=== PATIENT | male | born 1970 | race Caucasian/White ===

== ENCOUNTER 2021-02-07 01:52 | Inpatient (IN) ==
[2021-02-07] MEDS ORDERED: 0.9 % Sodium Chloride 1,000 ML IVC ONE ×2 (02:35→04:50)
[2021-02-07] MEDS ORDERED: Ondansetron ODT 4 MG TAB.RAPDIS SL PRN ×2 (02:39→05:48)
[2021-02-07] MEDS ORDERED: Isovue-370 500 ML BOTTLE IVP ONE (02:47)
[2021-02-07 02:49] LABS: Bilirubin,Urine Moderate (Negative); Blood,Urine Small (Negative); Clarity,Urine Clear (Clear); Color,Urine Dark-Yellow (Yellow); Glucose,Urine (UA) Normal (Normal); Hyaline Casts,Urine Few per lpf (None Seen); Ketones,Urine 20 mg/dL (Negative); Leukocyte Esterase,Urine Negative (Negative); Mucus,Urine Few per lpf (None-Few); Nitrite,Urine Negative (Negative); Protein,Urine Trace mg/dL (Neg-Trace); RBC,Urine 0-3 per hpf (0-3); Specific Gravity,Urine 1.028 (1.010-1.025); Transitional Epi Cells,Urine Few per hpf (None-Few)
[2021-02-07 03:08] LABS: Basophils % 0.1 %; Hematocrit 41.5 % (37.5-50.1); Hemoglobin 14.8 g/dL (12.9-16.9); Immature Granulocytes % 0.7 % (0-4); Lymphocytes # 1.1 K/mcL (0.6-4.6); Lymphocytes % 6.8 %; Mean Corpuscular HGB Conc 35.7 g/dL (31.6-35.5); Mean Corpuscular Hemoglobin 31.2 pg (28.0-33.3); Mean Corpuscular Volume 87.6 fL (83.0-100.0); Mean Platelet Volume 10.7 fL (9.4-12.4); Monocytes # 0.8 K/mcL (0.0-1.3); Monocytes % 4.5 %; Neutrophils # 14.7 K/mcL (1.6-8.9); Platelet Count 299 K/mcL (140-400); Red Blood Count 4.74 M/mcL (4.19-5.50); Red Cell Distribution Width 12.6 % (11.5-14.5); Segmented Neutrophils % 87.9 %; White Blood Count 16.7 K/mcL (4.3-11.1)
[2021-02-07 03:14] LABS: BUN/Creatinine Ratio 18 (6-26); Blood Urea Nitrogen 14 mg/dL (6-20); Calcium 9.6 mg/dL (8.6-10.3); Carbon Dioxide 24 mEq/L (23-29); Chloride 101 mEq/L (98-107); Glucose 136 mg/dL (70-105); Osmolality,Calculated 287 (280-300); Potassium 3.3 mEq/L (3.5-5.1); Sodium 137 mEq/L (136-145); eGFR For African Americans > 60 (> 60); eGFR For Non-African Americans > 60 (> 60)
[2021-02-07 03:36] LABS: Alanine Aminotransferase 123 Units/L (7-52); Albumin 4.2 g/dL (3.5-5.7); Albumin/Globulin Ratio 1.4 (1.1-2.2); Alkaline Phosphatase 174 Units/L (34-104); Aspartate Amino Transferase 96 Units/L (13-39); Bilirubin,Direct 3.7 mg/dL (0.0-0.2); Bilirubin,Indirect 1.8 mg/dL (0.0-1.0); Bilirubin,Total 5.5 mg/dL (0.3-1.0); Globulin 2.9 g/dL (2.4-3.5); Lipase 1074 Units/L (11-82); Total Protein 7.1 g/dL (6.4-8.9)
[2021-02-07 03:38] LABS: Influenza A PCR Negative (Negative); Influenza B PCR Negative (Negative); Resp. Syncytial Virus PCR Negative (Negative)
[2021-02-07 03:41] LABS: SARS-CoV-2 by PCR (In House) Negative (Negative)
[2021-02-07] MEDS ORDERED: Piperacillin/Tazobactam 3.375 GM in 0.9 % Sodium Chloride Mini Bag 100 ML IVPB ONE (04:27)
[2021-02-07] MEDS ORDERED: Ondansetron ODT 4 MG TAB.RAPDIS SL ONE (04:51)
[2021-02-07] MEDS ORDERED: Metoclopramide 10 MG/2 ML VIAL IVP ONE (05:37)
[2021-02-07] MEDS ORDERED: Morphine Sulfate 2 MG/ML SYRINGE IVP ONE (05:47)
[2021-02-07] MEDS ORDERED: Naloxone 0.4 MG/ML INJ IVP PRN (05:48)
[2021-02-07] MEDS ORDERED: 0.9 % Sodium Chloride 1,000 ML IVC SCH ×2 (06:00→11:00)
[2021-02-07] MEDS ORDERED: Morphine Sulfate 2 MG/ML SYRINGE IVP PRN (09:27)
[2021-02-07] MEDS: Ondansetron 4 MG/2 ML VIAL IVP PRN ×2 (10:13→20:57)
[2021-02-07] MEDS: *HR* HYDROmorphone 2 MG/ML SYRINGE IVP PRN ×2 (13:13→20:52)
[2021-02-07] MEDS: Piperacillin/Tazobactam 3.375 GM in 0.9 % Sodium Chloride Mini Bag 100 ML IVPB SCH ×2 (13:20→20:41)
[2021-02-07] MEDS ORDERED: *HR* FentaNYL (PF) 100 MCG/2 ML VIAL IVP PRN (13:53)
[2021-02-07] MEDS ORDERED: Ondansetron 4 MG/2 ML VIAL IVP PRN (13:53)
[2021-02-07] MEDS ORDERED: *HR* HYDROmorphone PF 0.5 MG/0.5 ML SYRINGE IVP PRN (13:53)
[2021-02-07] MEDS ORDERED: *HR* Midazolam HCl 2 MG/2 ML VIAL ONE (14:10)
[2021-02-07] MEDS ORDERED: Lidocaine -MPF 2% 2 ML VIAL ONE (14:10)
[2021-02-07] MEDS ORDERED: *HR* FentaNYL (PF) 100 MCG/2 ML VIAL ONE ×2 (14:10→14:43)
[2021-02-07] MEDS ORDERED: Lidocaine HCL 4 ML Topical Solution (Laryng-O-Jet Kit Sterile Pak) TP ONE (14:10)
[2021-02-07] MEDS ORDERED: Ondansetron 4 MG/2 ML VIAL ONE (14:10)
[2021-02-07] MEDS ORDERED: *HR* Propofol 200 MG/20 ML VIAL IVP ONE (14:10)
[2021-02-07] MEDS ORDERED: *HR* Succinylcholine 200 MG/10 ML VIAL IVP ONE (14:10)
[2021-02-07] MEDS ORDERED: Indomethacin 50 MG SUPP.RECT RC ONE (15:16)
[2021-02-07] MEDS ORDERED: Ibuprofen 600 MG TABLET PO ONE (20:38)
[2021-02-07] MEDS: 0.9 % Sodium Chloride 1,000 ML IVC SCH ×2 (20:45→22:51)
[2021-02-08] MEDS: *HR* HYDROmorphone 2 MG/ML SYRINGE IVP PRN ×4 (04:15→20:02)
[2021-02-08] MEDS: 0.9 % Sodium Chloride 1,000 ML IVC SCH ×3 (04:18→20:07)
[2021-02-08] MEDS: Piperacillin/Tazobactam 3.375 GM in 0.9 % Sodium Chloride Mini Bag 100 ML IVPB SCH ×3 (04:20→20:08)
[2021-02-08] MEDS: Ondansetron 4 MG/2 ML VIAL IVP PRN (04:26)
[2021-02-08 04:35] LABS: Hematocrit 39.1 % (37.5-50.1); Mean Corpuscular HGB Conc 33.5 g/dL (31.6-35.5); Mean Corpuscular Hemoglobin 29.7 pg (28.0-33.3); Mean Corpuscular Volume 88.7 fL (83.0-100.0); Mean Platelet Volume 10.9 fL (9.4-12.4); Platelet Count 231 K/mcL (140-400); Red Blood Count 4.41 M/mcL (4.19-5.50); Red Cell Distribution Width 12.9 % (11.5-14.5); White Blood Count 14.2 K/mcL (4.3-11.1)
[2021-02-08 04:36] LABS: Hemoglobin 13.1 g/dL (12.9-16.9)
[2021-02-08 04:53] LABS: BUN/Creatinine Ratio 13 (6-26); Blood Urea Nitrogen 9 mg/dL (6-20); Calcium 8.9 mg/dL (8.6-10.3); Carbon Dioxide 21 mEq/L (23-29); Chloride 105 mEq/L (98-107); Glucose 87 mg/dL (70-105); Osmolality,Calculated 280 (280-300); Potassium 3.3 mEq/L (3.5-5.1); Sodium 136 mEq/L (136-145); eGFR For African Americans > 60 (> 60); eGFR For Non-African Americans > 60 (> 60)
[2021-02-08 04:55] LABS: Albumin 3.8 g/dL (3.5-5.7); Albumin/Globulin Ratio 1.6 (1.1-2.2); Bilirubin,Indirect 1.7 mg/dL (0.0-1.0); Bilirubin,Total 4.7 mg/dL (0.3-1.0); Globulin 2.4 g/dL (2.4-3.5); Magnesium 1.6 mg/dL (1.6-2.6); Total Protein 6.2 g/dL (6.4-8.9)
[2021-02-08] MEDS ORDERED: *HR* Promethazine 25 MG/ML VIAL IM ONE (08:58)
[2021-02-08] MEDS ORDERED: 0.9 % Sodium Chloride 1,000 ML IVC SCH (11:00)
[2021-02-08] MEDS ORDERED: Ondansetron 4 MG/2 ML VIAL IVP PRN ×2 (11:18→19:34)
[2021-02-08] MEDS ORDERED: *HR* FentaNYL (PF) 100 MCG/2 ML VIAL IVP PRN (11:18)
[2021-02-08] MEDS ORDERED: Acetaminophen IV 1,000 MG/100 ML BAG IVPB ONE (11:18)
[2021-02-08] MEDS ORDERED: Famotidine 20 MG/2 ML VIAL IVP ONE (11:18)
[2021-02-08] MEDS ORDERED: *HR* HYDROmorphone (PF) 1 MG/ML SYRINGE IVP PRN (11:24)
[2021-02-08] MEDS ORDERED: Famotidine 20 MG/2 ML VIAL ONE (11:40)
[2021-02-08] MEDS ORDERED: Ringers Solution, Lactated 1,000 ML ONE (13:00)
[2021-02-08] MEDS ORDERED: *HR* Propofol 200 MG/20 ML VIAL IVP ONE (13:43)
[2021-02-08] MEDS ORDERED: Lidocaine HCL 4 ML Topical Solution (Laryng-O-Jet Kit Sterile Pak) TP ONE (13:47)
[2021-02-08] MEDS ORDERED: *HR* Midazolam HCl 2 MG/2 ML VIAL ONE (13:47)
[2021-02-08] MEDS ORDERED: *HR* Rocuronium Bromide 50 MG/5 ML VIAL ONE ×2 (13:47→14:45)
[2021-02-08] MEDS ORDERED: Lidocaine -MPF 2% 5 ML VIAL ONE (13:47)
[2021-02-08] MEDS ORDERED: *HR* FentaNYL (PF) 100 MCG/2 ML VIAL ONE ×2 (13:47→14:25)
[2021-02-08] MEDS ORDERED: Ondansetron 4 MG/2 ML VIAL ONE (13:47)
[2021-02-08] MEDS ORDERED: *HR* HYDROMORPHONE 2 MG/ML VIAL ONE ×2 (14:09→14:58)
[2021-02-08] MEDS ORDERED: Sugammadex Sodium 200 MG/2 ML VIAL IV ONE (14:19)
[2021-02-08] MEDS ORDERED: Naloxone 0.4 MG/ML INJ IVP PRN (19:34)
[2021-02-08] MEDS ORDERED: Ibuprofen 600 MG TABLET PO ONE (23:50)
[2021-02-08] MEDS ORDERED: *HR* Metoprolol 5 MG/5 ML VIAL IVP ONE (23:51)
[2021-02-09] MEDS: *HR* HYDROmorphone 2 MG/ML SYRINGE IVP PRN ×2 (00:06→04:55)
[2021-02-09 01:57] LABS: Basophils % 0.1 %; Hematocrit 38.5 % (37.5-50.1); Hemoglobin 12.9 g/dL (12.9-16.9); Immature Granulocytes % 0.8 % (0-4); Immature Platelets 6.6 % (1.1-6.1); Lymphocytes # 1.1 K/mcL (0.6-4.6); Mean Corpuscular HGB Conc 33.5 g/dL (31.6-35.5); Mean Corpuscular Hemoglobin 30.4 pg (28.0-33.3); Mean Corpuscular Volume 90.6 fL (83.0-100.0); Mean Platelet Volume 11.2 fL (9.4-12.4); Monocytes # 0.9 K/mcL (0.0-1.3); Monocytes % 7.9 %; Neutrophils # 8.9 K/mcL (1.6-8.9); Platelet Count 130 K/mcL (140-400); Red Blood Count 4.25 M/mcL (4.19-5.50); Segmented Neutrophils % 81.2 %
[2021-02-09 02:18] LABS: Alanine Aminotransferase 247 Units/L (7-52); Albumin 3.7 g/dL (3.5-5.7); Albumin/Globulin Ratio 1.4 (1.1-2.2); Alkaline Phosphatase 159 Units/L (34-104); Aspartate Amino Transferase 203 Units/L (13-39); BUN/Creatinine Ratio 17 (6-26); Bilirubin,Direct 0.5 mg/dL (0.0-0.2); Bilirubin,Indirect 1.4 mg/dL (0.0-1.0); Bilirubin,Total 1.9 mg/dL (0.3-1.0); Blood Urea Nitrogen 13 mg/dL (6-20); Calcium 10.5 mg/dL (8.6-10.3); Carbon Dioxide 20 mEq/L (23-29); Chloride 110 mEq/L (98-107); Globulin 2.6 g/dL (2.4-3.5); Glucose 98 mg/dL (70-105); Osmolality,Calculated 292 (280-300); Potassium 5.5 mEq/L (3.5-5.1); Sodium 141 mEq/L (136-145); Total Protein 6.3 g/dL (6.4-8.9); eGFR For African Americans > 60 (> 60); eGFR For Non-African Americans > 60 (> 60)
[2021-02-09] MEDS: Piperacillin/Tazobactam 3.375 GM in 0.9 % Sodium Chloride Mini Bag 100 ML IVPB SCH ×2 (04:59→12:33)
[2021-02-09] MEDS: 0.9 % Sodium Chloride 1,000 ML IVC SCH (05:03)
[2021-02-09 06:29] VITALS: TEMP 98.1
[2021-02-09] MEDS ORDERED: *HR* OxyCODONE Immed Rel 5 MG TABLET PO PRN (08:14)
[2021-02-09] MEDS: Ibuprofen 400 MG TABLET PO SCH ×2 (08:43→15:51)
[2021-02-09 12:51] VITALS: O2SAT 92
[2021-02-09 14:22] VITALS: BP 158/89; PULSE 71
[2021-02-09 17:48] LABS: BUN/Creatinine Ratio 15 (6-26); Blood Urea Nitrogen 10 mg/dL (6-20); Carbon Dioxide 27 mEq/L (23-29); Chloride 102 mEq/L (98-107); Glucose 110 mg/dL (70-105); Osmolality,Calculated 284 (280-300); Potassium 3.2 mEq/L (3.5-5.1); Sodium 137 mEq/L (136-145); eGFR For African Americans > 60 (> 60); eGFR For Non-African Americans > 60 (> 60)
== END 2021-02-09 18:07 | disposition home or self-care (01) | DRG 710 ==
LOC: EMEROOARM 01:52 → 3ANU 01:52 → SUATTDRO 06:01 → 3ANU 07:45
PROVIDERS: ADMIT Student in an Organized Health Care Education/Training Program; ATTEND Pharmacist